=== PATIENT | female | born 1940 | race Caucasian/White ===

== ENCOUNTER 2022-02-23 07:14 | Outpatient (CLI) | payer MEDICARE, OTHER, SELFPAY | END 2022-02-23 07:15 | disposition home or self-care (01) | PROVIDERS: PCP Physician Assistant; Visit Provider Internal Medicine Gastroenterology | DX: K22.70 Barrett's esophagus without dysplasia (principal); K44.9 Diaphragmatic hernia without obstruction or gangrene; K31.7 Polyp of stomach and duodenum | CPT/HCPCS: 43239; 88305; J2250; J3010 ==

== ENCOUNTER 2023-12-15 11:15 | Outpatient (RCR) | payer MEDICARE, OTHER, SELFPAY | END 2024-02-08 14:32 | disposition home or self-care (01) | PROVIDERS: PCP Physician Assistant; Visit Provider Student in an Organized Health Care Education/Training Program | DX: M54.42 Lumbago with sciatica, left side (principal); Z51.89 Encounter for other specified aftercare | CPT/HCPCS: 97110; 97140; 97161 ==

== ENCOUNTER 2024-02-01 08:02 | Outpatient (CLI) | payer MEDICARE, OTHER, SELFPAY | END 2024-02-01 08:03 | disposition home or self-care (01) | LOC: INJ CL 08:03 | PROVIDERS: PCP Student in an Organized Health Care Education/Training Program; Visit Provider Family Medicine | DX: M54.16 Radiculopathy, lumbar region (principal); M48.062 Spinal stenosis, lumbar region with neurogenic claudication | CPT/HCPCS: 64483; J1100; Q9966 ==